=== PATIENT | female | born 1995 | race Caucasian/White ===

== ENCOUNTER 2017-10-15 16:40 | Emergency (ER) | payer OTHER ==
[~2017-10-15] VITALS: Ht 162.6 cm; Wt 67.1 kg
--- NOTE | ~2017-10-15 | EKG ---
[place] [address] [facility] [place] [address] ELECTROCARDIOGRAM REPORT Name: LETICIA FONTANA Room #: [id number] Admission: 10/15/17 Attend Phys: Discharge: 10/15/17 Date of : [birth year] Report #: [id number] THIS REPORT FOR: //name// [facility] ED Test Date: 2017-10-15 Test Time: 16:42:37 Pat Name: LETICIA FONTANA Department: Room: Gender: F Insolvency Consultant: [facility] : 1995 Requested By: Jac Mendieta Order Number: [id number] MD: Maxx Tariq Measurements Intervals [place] Rate: 132 P: 78 WV: 109 QRS: 71 QRSD: 90 T: -16 QT: 296 QTc: 439 Interpretive Statements Sinus tachycardia Consider right atrial enlargement Borderline repolarization abnormality No previous ECG available for comparison Electronically Signed On 10-17-2017 7:29:21 CDT by Maxx Tariq [email or web address] <ELECTRONICALLY SIGNED> By: Maxx Tariq MD, [facility] 10/17/17 0729 1642 41 Maxx Tariq MD, FACC /EPI
[~2017-10-15 16:40] MED LIST: LORATIDINE 10 M10 M1; NAPROSYN500 MG PO; NOHOMEMEDICATIONS; NORFLEX100 MG PO; PENICILLIN VK250 MG PO; PERMETHRIN60 GM TOP; SUDAFED 12 HOU120 MG; TRIAMCINOLONE A15 G1 TP; TRINATE TABLET1 TAB; TRINESSA1 EACH PO; ULTRAM 50MG TAB50 MG PO; ZOFRAN ODT4 MG PO
[2017-10-15 17:25] LABS: HEMATOCRIT 45.5 % (37.0-47.0); HEMOGLOBIN 15.5 gm/dL (12.0-15.0); MCH 31.6 pg (26.0-34.0); MCV 92.8 fL (80.0-100.0); RBC 4.9 mil/uL (4.20-5.00); RDW 12.9 % (10.5-14.5); WBC 9.1 thou/uL (4.0-11.0)
[2017-10-15 17:32] LABS: ANION GAP 6 mmol/L (7-16); BUN 6 mg/dL (7-18); CALCIUM 9.2 mg/dL (8.5-10.1); CHLORIDE 104 mmol/L (98-107); CO2 26 mmol/L (21-32); CREATININE 0.8 mg/dL (0.6-1.0); GLUCOSE 144 mg/dL (74-106); POTASSIUM 3.5 mmol/L (3.5-5.1); SODIUM 136 mmol/L (136-145)
[2017-10-15 17:41] LABS: TROPONIN-I <0.06 ng/mL (<0.06)
[2017-10-15 17:51] LABS: URINE BILIRUBIN NEGATIVE (Negative); URINE BLOOD NEGATIVE (Negative); URINE CLARITY CLEAR; URINE COLOR YELLOW; URINE GLUCOSE-RANDOM* NEGATIVE (Negative); URINE KETONES NEGATIVE (Negative); URINE LEUKOCYTES-REFLEX NEGATIVE (Negative); URINE NITRITE-REFLEX NEGATIVE (Negative); URINE PROTEIN (DIPSTICK) NEGATIVE (Negative); URINE SPECIFIC GRAVITY <= 1.005 (1.005-1.035); URINE UROBILINOGEN 0.2 E.U./dl (0.2-1.0)
[2017-10-15 17:59] LABS: AMP/METHAMP Negative (Negative); BARBITURATES Negative (Negative); BENZODIAZEPINES POSITIVE (Negative); COCAINE Negative (Negative); METHADONE Negative (Negative); OPIATES Negative (Negative); PCP Negative (Negative)
[2017-10-15] MEDS ORDERED: ATIVAN0.5 MG PO (18:54)
[2017-10-15 19:09] VITALS: BP 126/81
== END 2017-10-15 19:13 | disposition home or self-care (01) ==
LOC: ER 16:40
PROVIDERS: Physician Assistant
DX: R07.9 Chest pain, unspecified (principal); F12.10 Cannabis abuse, uncomplicated; F41.9 Anxiety disorder, unspecified; R00.2 Palpitations; R00.0 Tachycardia, unspecified; M79.602 Pain in left arm; J45.909 Unspecified asthma, uncomplicated